=== PATIENT | male | born 1940 | race Caucasian/White ===

== ENCOUNTER 2020-11-21 11:39 | Emergency (ER) | payer MEDICARE ==
[2020-11-21] MEDS ORDERED: HYDROCODONE-AC1 EACH PO (14:25)
[2020-11-21] MEDS ORDERED: CEPHALEXIN500 M1 PO (14:27)
== END 2020-11-21 14:44 | disposition home or self-care (01) ==
LOC: ER1 11:39
DX: S80.01XA Contusion of right knee, initial encounter (principal); W22.8XXA Striking against or struck by other objects, initial encounter
CPT/HCPCS: 73552; 73562; 99283